=== PATIENT | male | born 2000 | race African-American/Black ===

== ENCOUNTER 2019-06-08 02:35 | Emergency (ER) | payer OTHER ==
[~2019-06-08] VITALS: Ht 185.4 cm; Wt 63.6 kg
[2019-06-08 04:26] VITALS: BP 133/77
--- NOTE | 2019-06-08 07:28 | REP ---
Left elbow for views : There is no fracture or dislocation. Mineralization and joint spaces are normal. There are no calcifications or foreign bodies. Impression: Negative left elbow . Electronically Signed by Otoniel Souza MD 06/08/2019 07:19 A
== END 2019-06-08 04:26 | disposition home or self-care (01) ==
LOC: M ED 02:35
DX: S50.02XA Contusion of left elbow, initial encounter (principal); W18.39XA Other fall on same level, initial encounter; Y92.89 Other specified places as the place of occurrence of the external cause